=== PATIENT | male | born 1950 | race Caucasian/White ===

== ENCOUNTER 2018-11-04 07:01 | Emergency (ER) | payer BC ==
[~2018-11-04] VITALS: Ht 190.5 cm; Wt 104.8 kg
[2018-11-04] MEDS ORDERED: TRAM50TA PO (07:55)
[2018-11-04] MEDS ORDERED: HYDR30CR61 TP (07:55)
[2018-11-04] MEDS ORDERED: POLY119P4 PO (07:57)
--- NOTE | 2018-11-04 07:57 | PHYS DOC ---
Past History Past Medical History: GERD, High Cholesterol, Hypertension Past Surgical History: Appendectomy, Other Additional Past Surgical Histo: hernia, shoulder, Smoking: Quit Greater Than 1 Year Alcohol Use: Occasionally Drug Use: Marijuana Adult General Chief Complaint Chief Complaint: HEMORRHOIDS HPI HPI Patient is a 67-year-old male presents with rectal pain. Patient drove here from [place] over the past several days. He is visiting family. Noted that he had hemorrhoid they was unable to push back in. No relief with [id number] products. Has a remote history of having to have clots removed from the hemorrhoid. No rectal bleeding. Nothing makes the symptoms better. Sitting makes them worse. Discomfort is moderate in intensity. No radiation.[] Review of Systems Review of Systems Constitutional: Denies fever or chills [] Eyes: Denies change in visual acuity, redness, or eye pain [] HENT: Denies nasal congestion or sore throat [] Respiratory: Denies cough or shortness of breath [] Cardiovascular: Chest pain or palpitations[] GI: Denies abdominal pain, nausea, vomiting, bloody stools or diarrhea [] : Denies dysuria or hematuria [] Musculoskeletal: Denies back pain or joint pain [] Integument: Denies rash or skin lesions [] Neurologic: Denies headache, focal weakness or sensory changes [] Endocrine: Denies polyuria or polydipsia [] All other systems were reviewed and found to be within normal limits, except as documented in this note. Allergies Allergies Allergies Coded Allergies Type Severity Reaction Last Updated Verified No Known Drug Allergies 11/04/18 No Physical Exam Physical Exam Constitutional: Well developed, well nourished, no acute distress, non-toxic appearance. [] HENT: Normocephalic, atraumatic, bilateral external ears normal, oropharynx moist, no oral exudates, nose normal. [] Eyes: PERRLA, EOMI, conjunctiva normal, no discharge. [] Neck: Normal range of motion, no tenderness, supple, no stridor. [] Cardiovascular:Heart rate regular rhythm, no murmur [] Lungs & Thorax: Bilateral breath sounds clear to auscultation [] Abdomen: Bowel sounds normal, soft, no tenderness, no masses, no pulsatile masses. Rectal exam: External hemorrhoid at the 4 o'clock position. There is no thrombus. No active bleeding. [] Skin: Warm, dry, no erythema, no rash. [] Back: No tenderness, no CVA tenderness. [] Extremities: No tenderness, no cyanosis, no clubbing, ROM intact, no edema. [] Neurologic: Alert and oriented X 3, normal motor function, normal sensory function, no focal deficits noted. [] Psychologic: Affect normal, judgement normal, mood normal. [] EKG EKG [] Radiology/Procedures Radiology/Procedures [] Course & Med Decision Making Course & Med Decision Making Pertinent Labs and Imaging studies reviewed. (See chart for details) Medical decision making: Patient appears to have an external hemorrhoid without thrombosis. Will treat symptomatically. Instructed patient to increase fiber in his diet due to narcotic pain medicines slowing gut transit and increased straining due to that.[] Dragon Disclaimer Dragon Disclaimer This electronic medical record was generated, in whole or in part, using a voice recognition dictation system. Departure Departure: Impression: Primary Impression: External hemorrhoid Disposition: HOME, SELF-CARE Condition: IMPROVED Referrals: PCP,MORRIS (PCP) Patient Instructions: Hemorrhoids, Sitz Bath Additional Instructions: Follow-up with your regular doctor in 2 days. If you do not have a local regular doctor, a list of local clinics we've provided for you. Use a donut ring when sitting to help take pressure off of the area. Increase the fiber in your diet. Use the medication as prescribed. Perform sitz bath after each bowel movement and 4 additional times daily to keep the area meticulously clean. Return to the ER if worsening pain, bleeding, or any other concerns. Scripts Polyethylene Glycol 3350 (MIRALAX) 119 Gm Powder 17 GM PO DAILY for softener, #255 GM Prov: RACHELL RENTERIA DO 11/04/18 Hydrocortisone (ANUSOL-HC) 30 Gm Cream..g. 1 GUILLERMINA TP BID for external hemorrhoid, #30 GM Prov: RACHELL RENTERIA DO 11/04/18 Tramadol Hcl (TRAMADOL HCL) 50 Mg Tablet 50 MG PO PRN Q6HRS PRN for PAIN, #20 TAB Prov: RACHELL RENTERIA DO 11/04/18 RACHELL RENTERIA DO November 04, 2018 07:57
[2018-11-04 08:13] VITALS: BP 148/93
== END 2018-11-04 08:14 | disposition home or self-care (01) ==
LOC: ER 07:01
DX: K64.4 Residual hemorrhoidal skin tags (principal); K21.9 Gastro-esophageal reflux disease without esophagitis; E78.00 Pure hypercholesterolemia, unspecified; I10 Essential (primary) hypertension; Z90.89 Acquired absence of other organs; Z87.891 Personal history of nicotine dependence
CPT/HCPCS: 99283